=== PATIENT | male | born 1975 | race African-American/Black ===

== ENCOUNTER 2024-04-26 23:16 | Emergency (ER) | payer SELFPAY ==
[~2024-04-26] VITALS: Ht 167.6 cm; Wt 70.0 kg
[2024-04-26 23:22] VITALS: O2SAT 100
[2024-04-27 00:30] LABS: BASOPHILS % 0.4 % (0.0-2.0); HEMATOCRIT. 33.8 % (42.0-52.0); HEMOGLOBIN. 11.4 g/dL (14.0-18.0); MEAN CORPUSCULAR HEMOGLOBIN 30.8 pg (28.0-32.0); MEAN CORPUSCULAR HGB CONC 33.6 g/dL (31.0-37.0); MEAN CORPUSCULAR VOLUME 91.6 fL (80.0-94.0); MEAN PLATELET VOLUME 8.2 fl (7.4-10.4); MONOCYTES % 10.5 % (2.0-8.0); NEUTROPHILS % 49.1 % (40.0-76.0); PLATELET 227 x1000/uL (130-400); RED CELL DISTRIBUTION WIDTH 16.1 % (11.6-14.6); WHITE BLOOD COUNT 5.4 x1000/uL (4.5-11.0)
[2024-04-27 00:36] LABS: CHLORIDE 106 mEq/L (98-107); POTASSIUM 3.4 mEq/L (3.5-5.1); SODIUM 138 mEq/L (136-145)
[2024-04-27 00:37] LABS: CLARITY URINE CLEAR (CLEAR); COLOR URINE YELLOW (YELLOW); GLUCOSE URINE NEGATIVE (NEGATIVE); KETONES URINE NEGATIVE (NEGATIVE); LEUKOCYTE ESTERASE URINE NEGATIVE (NEGATIVE); NITRITE URINE NEGATIVE (NEGATIVE); OCCULT BLOOD URINE NEGATIVE (NEGATIVE); PROTEIN URINE 1+ (NEGATIVE); SPECIFIC GRAVITY URINE 1.024 (1.005-1.030); UROBILINOGEN URINE 0.2 E.U./dL (0.2-1.0)
[2024-04-27 00:37] LABS: CALCIUM 9.2 mg/dL (8.7-10.4); CARBON DIOXIDE 24 mEq/L (21-32)
[2024-04-27 00:39] LABS: *AMPHETAMINES SCREEN URINE PRESUMPTIVE POSITIVE (NEGATIVE); *BARBITURATES SCREEN URINE NEGATIVE (NEGATIVE); *BENZODIAZEPINES SCREEN URINE NEGATIVE (NEGATIVE); *COCAINE SCREEN URINE NEGATIVE (NEGATIVE)
[2024-04-27 00:40] LABS: CANNABINOID URINE SCREEN NEGATIVE (NEGATIVE); ECSTASY MDMA SCREEN URINE CONF.TEST INDICATED (NEGATIVE); METHADONE URINE SCREEN NEGATIVE (NEGATIVE); OPIATES URINE SCREEN NEGATIVE (NEGATIVE); PHENCYCLIDINE URINE SCREEN NEGATIVE (NEGATIVE)
[2024-04-27 00:41] LABS: CREATININE 0.7 mg/dL (0.6-1.3)
[2024-04-27 00:42] LABS: GLUCOSE 165 mg/dL (70-105); UREA NITROGEN BLOOD 10 mg/dL (9-23)
[2024-04-27 00:44] LABS: ACETAMINOPHEN < 2 ug/mL (10-30)
[2024-04-27 00:46] LABS: ETHANOL BLOOD < 10 mg/dL (<10)
[2024-04-27 02:41] LABS: SQUAMOUS EPITHELIAL CELL URINE FEW /lpf (RARE/1+)
[2024-04-27 02:46] LABS: BACTERIA URINE NONE SEEN; RBC URINE 0-2 /hpf (0-2)
[2024-04-27 11:27] VITALS: TEMP 98.2
[2024-04-27 12:20] VITALS: BP 122/80; PULSE 78; RESP 16
== END 2024-04-27 12:32 | disposition home or self-care (01) ==
LOC: ER 23:26
DX: F20.9 Schizophrenia, unspecified (principal); E11.9 Type 2 diabetes mellitus without complications
CPT/HCPCS: 36415; 80048; 80305; 80307; 80320; 80329; 81003; 85025; 99285; G0480

== ENCOUNTER 2024-06-23 09:10 | Emergency (ER) | payer MEDICAID ==
[~2024-06-23] VITALS: Ht 162.6 cm; Wt 75.0 kg
[2024-06-23 09:11] VITALS: O2SAT 100
[2024-06-23] MEDS: LORAZEPAM 0.5MG TABLET PO ONE (09:42)
[2024-06-23 09:54] LABS: BASOPHILS % 0.6 % (0.0-2.0); EOSINOPHILS % 1.6 % (0.0-5.0); HEMATOCRIT. 36.1 % (42.0-52.0); HEMOGLOBIN. 12.1 g/dL (14.0-18.0); LYMPHOCYTES % 25.3 % (20.0-50.0); MEAN CORPUSCULAR HEMOGLOBIN 30.9 pg (28.0-32.0); MEAN CORPUSCULAR HGB CONC 33.5 g/dL (31.0-37.0); MEAN CORPUSCULAR VOLUME 92.3 fL (80.0-94.0); MEAN PLATELET VOLUME 10.1 fl (7.4-10.4); MONOCYTES % 14.2 % (2.0-8.0); NEUTROPHILS % 58.3 % (40.0-76.0); PLATELET 178 x1000/uL (130-400); RED BLOOD CELL COUNT 3.91 mill/uL (4.7-6.1); RED CELL DISTRIBUTION WIDTH 14.9 % (11.6-14.6); WHITE BLOOD COUNT 5.8 x1000/uL (4.5-11.0)
[2024-06-23 09:57] LABS: CHLORIDE 102 mEq/L (98-107); SODIUM 136 mEq/L (136-145)
[2024-06-23 09:58] LABS: CARBON DIOXIDE 23 mEq/L (21-32)
[2024-06-23 09:59] LABS: CALCIUM 9.1 mg/dL (8.7-10.4)
[2024-06-23 10:03] LABS: GLUCOSE 272 mg/dL (70-105); UREA NITROGEN BLOOD 30 mg/dL (9-23)
[2024-06-23 10:05] LABS: ACETAMINOPHEN < 2 ug/mL (10-30)
[2024-06-23 10:07] LABS: CREATININE 1.4 mg/dL (0.6-1.3)
[2024-06-23 10:08] LABS: ETHANOL BLOOD < 10 mg/dL (<10)
[2024-06-23] MEDS: POTASSIUM CHLORIDE 20MEQ/PACKET PO ONE (11:06)
[2024-06-23 12:47] VITALS: BP 111/58; PULSE 80; RESP 18; TEMP 37.00296; O2SAT 100
[2024-06-24] MEDS ORDERED: IBUP-2029 MT (02:11)
== END 2024-06-23 12:48 | disposition home or self-care (01) ==
LOC: ER 09:10
DX: E87.6 Hypokalemia (principal); E11.9 Type 2 diabetes mellitus without complications; I10 Essential (primary) hypertension; F20.9 Schizophrenia, unspecified
CPT/HCPCS: 36415; 80048; 80307; 80320; 80329; 85025; 99283; G0480

== ENCOUNTER 2024-06-23 17:12 | Emergency (ER) | payer MEDICAID ==
[~2024-06-23] VITALS: Ht 167.6 cm; Wt 62.0 kg
[2024-06-23 17:58] VITALS: O2SAT 100
[2024-06-24] MEDS ORDERED: IBUP-2029 MT (02:11)
[2024-06-24 02:38] VITALS: BP 137/79; PULSE 79; RESP 18; TEMP 37.11408; O2SAT 100
== END 2024-06-24 02:39 | disposition home or self-care (01) ==
LOC: ER 17:12
DX: G89.29 Other chronic pain (principal); M25.511 Pain in right shoulder; M25.512 Pain in left shoulder; E11.9 Type 2 diabetes mellitus without complications; F20.9 Schizophrenia, unspecified
CPT/HCPCS: 99282

== ENCOUNTER 2024-06-24 07:30 | Emergency (ER) | payer MEDICAID ==
[~2024-06-24] VITALS: Ht 172.7 cm; Wt 72.5 kg
[~2024-06-24 07:30] MED LIST: IBUP-2029 MT
[2024-06-24 07:35] VITALS: BP 120/69; PULSE 81; RESP 18; TEMP 98; O2SAT 90
== END 2024-06-24 09:28 | disposition left against medical advice (07) ==
LOC: ER 07:30
DX: Z76.0 Encounter for issue of repeat prescription (principal); Z53.21 Procedure and treatment not carried out due to patient leaving prior to being seen by health care provider
CPT/HCPCS: 82962